=== PATIENT | female | born 1990 | race Hispanic/Latino ===

== ENCOUNTER 2021-08-01 13:27 | Inpatient (IN) | payer SELFPAY ==
[2021-08-01] MEDS ORDERED: hydrALAZINE 20 MG/ML VIAL SLOW IVP PRN (16:01)
[2021-08-01] MEDS ORDERED: Promethazine HCl 25 MG/ML VIAL IM PRN (16:01)
[2021-08-01] MEDS ORDERED: Ondansetron PF 4 MG/2 ML Vial IVP PRN (16:01)
[2021-08-01 16:52] VITALS: BMI 28.9
[2021-08-01 17:46] LABS: SARS-CoV-2 NAA Rapid Test Not Detected (NotDetected)
[2021-08-01 17:56] LABS: Hemoglobin 12.8 g/dL (12.0-15.5); Mean Corpuscular Volume 91.5 fl (81.6-98.3); Mean Platelet Volume 10.8 fl (7.4-10.4); Platelet Count 242 10x3/uL (150-450); RBC Distribution Width 13.4 % (11.5-14.5); White Blood Cell (WBC) Count 13.7 10x3/uL (3.5-10.5)
[2021-08-01 18:07] LABS: ALT (SGPT) 16 U/L (8-55); AST (SGOT) 19 U/L (5-34); Albumin 3.4 g/dL (3.5-5.0); Alkaline Phosphatase 139 U/L (40-110); Anion Gap 13 mmol/L (10-20); BUN (Urea Nitrogen) 6 mg/dL (7.0-18.7); Bilirubin, Total 0.3 mg/dL (0.2-1.2); Calc. Creatinine Clearance 182 mL/min (70-130); Calcium 8.8 mg/dL (7.8-10.44); Carbon Dioxide 21 mmol/L (22-29); Chloride 109 mmol/L (98-107); Globulin 3.4 g/dL (2.4-3.5); Glucose 83 mg/dL (70-105); Potassium 3.9 mmol/L (3.5-5.1); Protein, Total 6.8 g/dL (6.0-8.3); Sodium 139 mmol/L (136-145)
[2021-08-01 18:26] LABS: HBSAg Index 0.17 S/CO (0-0.99); HIV (1/2) Antibody/Antigen Non-Reactive (NonReactive); HIV 1/2 INDEX 0.05 S/CO (<1.00); Hep B Surf Ag Non-Reactive S/CO (NonReactive); Syphilis Antibody Nonreactive (Nonreactive); Syphilis Antibody Index 0.03 S/CO (<1.00 Non-Reactive)
[2021-08-01 20:23] LABS: Fetal Membranes Rupture No Membranes Rupture (No Rupture)
[2021-08-01 20:33] LABS: Bilirubin Neg (Negative); Blood, Urine 10 (Negative); Clarity Clear (Clear); Glucose, Urine (Dipstick) Normal (Negative); Ketone, Urine Negative (Negative); Leukocyte 500 (Negative); Nitrite Negative (Negative); Protein, Urine (Dipstick) Negative (Neg-Trace); Urobilinogen Normal mg/dL (Less than 2)
[2021-08-01 20:39] LABS: Bacteria/HPF 1+ HPF (None Seen)
[2021-08-01 20:41] LABS: Amphetamine Not Detected (NotDetected); Barbiturates Screen Not Detected (NotDetected); Benzodiazepine Screen Not Detected (NotDetected); Cocaine Metabolite Screen Not Detected (NotDetected); Methadone Not Detected (NotDetected); Methamphetamine Not Detected (NotDetected); Opiate Screen Not Detected (NotDetected); Oxycodone Screen Not Detected (NotDetected); Phencyclidine (PCP) Not Detected (NotDetected); THC/Cannabinoid Screen Not Detected (NotDetected); Tricyclic Screen Not Detected (NotDetected)
[2021-08-02 12:16] LABS: GC by PCR Not Detected (NotDetected)
== END 2021-08-01 21:15 | disposition home or self-care (01) | DRG 833 ==
LOC: CSHLD 13:27
PROVIDERS: ADMIT Obstetrics & Gynecology; ATTEND Obstetrics & Gynecology
DX: O99.891 Other specified diseases and conditions complicating pregnancy (principal); O48.0 Post-term pregnancy; O34.211 Maternal care for low transverse scar from previous cesarean delivery; Z20.822 Contact with and (suspected) exposure to COVID-19; Z3A.41 41 weeks gestation of pregnancy; N89.8 Other specified noninflammatory disorders of vagina
CPT/HCPCS: 36415; 76805; 76815; 76819; 80306; 84112; 86762; 86780; 86850; 86900; 86901; 87081; 87340; 87389; 87480; 87510; 87591; 87660; U0002

== ENCOUNTER 2021-08-05 05:21 | Inpatient (IN) | payer MEDICAID, SELFPAY ==
[2021-08-05] MEDS ORDERED: Bicitra 30 ML UDCUP PO PRN (06:25)
[2021-08-05] MEDS ORDERED: Ondansetron PF 4 MG/2 ML Vial IVP PRN ×2 (06:25→10:22)
[2021-08-05] MEDS ORDERED: Famotidine/PF 20 mg/2ml Vial SLOW IVP PRN (06:25)
[2021-08-05] MEDS ORDERED: Promethazine HCl 25 MG/ML VIAL IM PRN ×2 (06:25→10:22)
[2021-08-05] MEDS ORDERED: hydrALAZINE 20 MG/ML VIAL SLOW IVP PRN (06:25)
[2021-08-05 06:27] VITALS: BMI 31.8
[2021-08-05] MEDS ORDERED: ceFAZolin 2 GM/Dextrose 50 ML 2 GM in Premix Bag 1 BAG IVPB SCH (06:30)
[2021-08-05] MEDS ORDERED: Lactated Ringer's 1,000 ML IV SCH ×2 (06:30)
[2021-08-05] MEDS ORDERED: Morphine PF 10 MG/10 ML VIAL ONE (07:03)
[2021-08-05] MEDS ORDERED: Oxytocin 10 UNITS/ML VIAL ONE (07:03)
[2021-08-05] MEDS ORDERED: PHENYLEPHRINE-NS 100 MCG/ML 10 ML SYRINGE ONE (07:03)
[2021-08-05] MEDS ORDERED: Ondansetron PF 4 MG/2 ML Vial ONE (07:06)
[2021-08-05 07:50] LABS: Hemoglobin 12.5 g/dL (12.0-15.5); Mean Corpuscular HGB CONC 34.5 g/dL (32.0-36.0); Mean Corpuscular Hemoglobin 31.3 pg (27.0-33.0); Mean Corpuscular Volume 90.5 fl (81.6-98.3); Mean Platelet Volume 10.7 fl (7.4-10.4); Platelet Count 217 10x3/uL (150-450); RBC Distribution Width 13.3 % (11.5-14.5); White Blood Cell (WBC) Count 13.2 10x3/uL (3.5-10.5)
[2021-08-05 08:22] LABS: Hep B Surf Ag Non-Reactive S/CO (NonReactive); Syphilis Antibody Nonreactive (Nonreactive); Syphilis Antibody Index 0.02 S/CO (<1.00 Non-Reactive)
[2021-08-05 08:42] LABS: HBSAg Index 0.16 S/CO (0-0.99)
[2021-08-05] MEDS ORDERED: Naloxone HCl 0.4 mg/ml Vial IVP PRN ×2 (10:22)
[2021-08-05] MEDS ORDERED: Fentanyl 100 MCG/2 ML VIAL SLOW IVP PRN (10:22)
[2021-08-05] MEDS ORDERED: Promethazine HCl 25 MG SUPP PR PRN (10:22)
[2021-08-05] MEDS ORDERED: Moisturizing Cream (Eucerin) 113 GM JAR TOP PRN (10:22)
[2021-08-05] MEDS ORDERED: diphenhydrAMINE 50 MG/ML VIAL IVP PRN (10:22)
[2021-08-05] MEDS ORDERED: Naloxone HCl 0.4 mg/ml Vial IV PRN (10:22)
[2021-08-05] MEDS ORDERED: Meperidine HCl/PF 25 MG/ML VIAL SLOW IVP PRN (10:22)
[2021-08-05] MEDS ORDERED: Ketorolac Tromethamine 30 MG/ML VIAL IVP PRN (10:22)
[2021-08-05] MEDS ORDERED: Ondansetron HCl/PF 4 MG/2 ML Vial IVP PRN (10:22)
[2021-08-05] MEDS ORDERED: Communication Order-Pharmacy FS SCH (10:30)
[2021-08-05] MEDS ORDERED: Ketorolac Tromethamine 30 MG/ML VIAL IVP SCH (10:30)
[2021-08-05] MEDS: Prenatal Vitamin 1 TAB PO SCH (11:20)
[2021-08-05] MEDS ORDERED: NS w/ Oxytocin 30 units 500 ML ONE (12:20)
[2021-08-05] MEDS ORDERED: Methylergonovine 0.2 MG/ML VIAL IM PRN (12:41)
[2021-08-05] MEDS ORDERED: NS w/ Oxytocin 30 units 500 ML IV SCH (12:41)
[2021-08-05] MEDS ORDERED: Lanolin Ointment 7 GM TUBE TOP PRN (12:41)
[2021-08-05] MEDS ORDERED: Misoprostol 200 MCG TAB PR PRN (12:41)
[2021-08-05] MEDS ORDERED: Boostrix 0.5 ML (Tdap) VIAL IM ONE (12:41)
[2021-08-05] MEDS: Acetaminophen 325 MG TAB PO SCH ×3 (13:53→21:00)
[2021-08-06] MEDS: Acetaminophen 325 MG TAB PO SCH ×2 (01:15→08:12)
[2021-08-06] MEDS: Docusate 100 MG CAP PO SCH ×3 (01:15→21:19)
[2021-08-06 03:41] LABS: Hemoglobin 11.7 g/dL (12.0-15.5); Mean Corpuscular HGB CONC 33.9 g/dL (32.0-36.0); Mean Corpuscular Hemoglobin 31.4 pg (27.0-33.0); Mean Corpuscular Volume 92.5 fl (81.6-98.3); Mean Platelet Volume 10.8 fl (7.4-10.4); Platelet Count 200 10x3/uL (150-450); RBC Distribution Width 13.1 % (11.5-14.5); Red Blood Cell (RBC) Count 3.73 10x6/uL (3.90-5.03)
[2021-08-06] MEDS ORDERED: Acetaminophen 325 MG TAB PO PRN (08:30)
[2021-08-06] MEDS: Prenatal Vitamin 1 TAB PO SCH (09:13)
[2021-08-06] MEDS: Simethicone Chewable 80 MG TAB PO PRN (09:13)
[2021-08-06] MEDS: HYDROcodone/Acetaminophen 5/325 mg Tablet PO PRN ×2 (09:13→14:28)
[2021-08-06] MEDS: Ibuprofen 800 MG TAB PO SCH ×2 (13:55→21:19)
[2021-08-07] MEDS: Ibuprofen 800 MG TAB PO SCH ×2 (06:12→14:07)
[2021-08-07 08:04] VITALS: BP 108/68; TEMP 98.4
[2021-08-07] MEDS: Docusate 100 MG CAP PO SCH (09:00)
[2021-08-07] MEDS: Prenatal Vitamin 1 TAB PO SCH (09:00)
[2021-08-07] MEDS: Simethicone Chewable 80 MG TAB PO PRN (09:00)
== END 2021-08-07 14:40 | disposition home or self-care (01) | DRG 788 ==
LOC: CSHLD 05:21 → CSHPP 12:56
PROVIDERS: ADMIT Obstetrics & Gynecology; ATTEND Obstetrics & Gynecology
PROC: 10D00Z1 Extraction of Products of Conception, Low, Open Approach (ICD-10-PCS; principal; 2021-08-05)
DX: O34.211 Maternal care for low transverse scar from previous cesarean delivery (principal); Z20.822 Contact with and (suspected) exposure to COVID-19; O35.8XX0 Maternal care for other (suspected) fetal abnormality and damage, not applicable or unspecified; Z37.0 Single live birth; Z3A.42 42 weeks gestation of pregnancy; K66.0 Peritoneal adhesions (postprocedural) (postinfection); O99.62 Diseases of the digestive system complicating childbirth
CPT/HCPCS: 36415; 51702; 85027; 86780; 86850; 86900; 86901; 87340; J0690; J1885; J2274; J2405; J2550; J2590; S0028